=== PATIENT | female | born 1950 | race Two or more races ===

== ENCOUNTER 2020-09-08 14:45 | Emergency (ER) | payer OTHER ==
[~2020-09-08] VITALS: Ht 154.9 cm; Wt 95.3 kg
[2020-09-08] MEDS ORDERED: LOSARTAN-HCTZ1 EAC1 (15:27)
[2020-09-08] MEDS ORDERED: VERELAN240 MG (15:27)
[2020-09-08] MEDS ORDERED: TRAMADOL HCL50 MG (15:28)
[2020-09-08] MEDS ORDERED: SYNTHROID50 MCG (15:28)
[2020-09-08] MEDS ORDERED: FORTAMET500 MG (15:28)
[2020-09-08] MEDS ORDERED: NEURONTIN300 MG (15:29)
== END 2020-09-08 19:42 | disposition home or self-care (01) ==
LOC: ER 14:45
DX: M62.830 Muscle spasm of back (principal)

== ENCOUNTER 2021-02-19 12:57 | Emergency (ER) | payer OTHER ==
[~2021-02-19] VITALS: Ht 154.9 cm; Wt 93.4 kg
[~2021-02-19 12:57] MED LIST: FORTAMET500 MG; LOSARTAN-HCTZ1 EAC1; NEURONTIN300 MG; SYNTHROID50 MCG; TRAMADOL HCL50 MG; VERELAN240 MG
[2021-02-19] MEDS ORDERED: CARDURA XL4 MG (13:15)
== END 2021-02-19 20:08 | disposition home or self-care (01) ==
LOC: ER 12:57
DX: K52.9 Noninfective gastroenteritis and colitis, unspecified (principal)